=== PATIENT | female | born 1990 | race Two or more races ===

== ENCOUNTER 2022-01-30 08:58 | Outpatient (CLI) | payer OTHER ==
[~2022-01-30 08:58] MED LIST: INTESTINEX1 CAP PO; ZANTAC150 MG PO
== END 2022-01-30 09:48 | disposition home or self-care (01) ==
LOC: PRENATAL 08:58
PROVIDERS: ATTEND Obstetrics & Gynecology Maternal & Fetal Medicine
DX: O36.80X0 Pregnancy with inconclusive fetal viability, not applicable or unspecified (principal); O09.519 Supervision of elderly primigravida, unspecified trimester; Z3A.13 13 weeks gestation of pregnancy

== ENCOUNTER 2022-03-09 12:43 | Outpatient (CLI) | payer OTHER | END 2022-03-09 13:55 | disposition home or self-care (01) | LOC: PRENATAL 12:43 | PROVIDERS: ATTEND Obstetrics & Gynecology Maternal & Fetal Medicine | DX: O35.9XX0 Maternal care for (suspected) fetal abnormality and damage, unspecified, not applicable or unspecified (principal); O35.3XX0 Maternal care for (suspected) damage to fetus from viral disease in mother, not applicable or unspecified; Z3A.20 20 weeks gestation of pregnancy ==

== ENCOUNTER 2022-07-22 07:41 | Inpatient (IN) | payer OTHER ==
[~2022-07-22] VITALS: Ht 162.6 cm; Wt 90.7 kg
[2022-07-22] MEDS ORDERED: GAVISCON EXTRA355 ML PO (11:29)
[2022-07-22] MEDS ORDERED: PRENATAL + DHA1 EAC1 PO (11:29)
[2022-07-22] MEDS ORDERED: TYLENOL325 MG PO (11:30)
== END 2022-07-24 15:33 | disposition home or self-care (01) | DRG 807 ==
LOC: LDR 07:41 → OB/GYN 16:27
PROVIDERS: ADMIT Obstetrics & Gynecology; ATTEND Obstetrics & Gynecology
PROC: 10E0XZZ Delivery of Products of Conception, External Approach (ICD-10-PCS; principal; 2022-07-22)
PROC: 4A1HXCZ Monitoring of Products of Conception, Cardiac Rate, External Approach (ICD-10-PCS; 2022-07-22)
DX: O99.824 Streptococcus B carrier state complicating childbirth (principal); Z37.0 Single live birth; Z3A.39 39 weeks gestation of pregnancy; Z20.822 Contact with and (suspected) exposure to COVID-19

== ENCOUNTER 2023-04-13 12:48 | Emergency (ER) | payer OTHER ==
[~2023-04-13] VITALS: Ht 162.6 cm; Wt 88.5 kg
[~2023-04-13 12:48] MED LIST changes: +GAVISCON EXTRA355 ML PO; +PRENATAL + DHA1 EAC1 PO; +TYLENOL325 MG PO
[2023-04-13 13:56] LABS: HEMATOCRIT 37.9 % (36.0-45.00); HEMOGLOBIN 12.7 g/dL (12.0-15.00); MEAN CELL VOLUME 91.5 fL (80.00-100.00); MEAN CORPUSCULAR HEMOGLOBIN 30.6 pg (27.00-32.0); MEAN CORPUSCULAR HGB CONC 33.5 g/dl (32.0-36.0); PLATELET COUNT 241 K/uL (150-450); RED BLOOD COUNT 4.14 M/uL (4.00-6.00)
[2023-04-13 14:27] LABS: ALBUMIN 3.5 gm/dL (3.4-5.0); ALKALINE PHOSPHATASE 87 U/L (50-136); ALT/SGPT 44 U/L (12-78); AMYLASE 45 U/L (25-115); ANION GAP 7 (10.0-20.0); AST/SGOT 18 U/L (15-37); BILIRUBIN TOTAL 0.65 mg/dL (0.3-1.2); BLOOD UREA NITROGEN 11 mg/dL (7-18); BUN CREA RATIO 14 (7.0-25.0); CALCIUM 8.5 mg/dL (8.5-10.1); CARBON DIOXIDE 27 mEq/L (21-32); CHLORIDE 109 mmol/L (98-107); CREATININE SERUM 0.76 mg/dL (0.55-1.02); GFR 88.76; GLOBULINA 3.9 G/DL (2.4-3.5); GLUCOSE FASTING 103 mg/dL (65-100); LIPASE 15 U/L (13-75); OSMOLALITY SERUM 277 MOSM/KG (275-295); POTASSIUM 3.55 mEq/L (3.5-5.1); SODIUM 139 mmol/L (136-145); TOTAL PROTEIN 7.4 gm/dL (6.4-8.2)
[2023-04-13 14:49] LABS: HCG QUANTITATIVE < 1 mUI/mL (1-3)
== END 2023-04-13 19:26 | disposition home or self-care (01) ==
LOC: ER 12:48
PROVIDERS: General Practice
DX: R19.7 Diarrhea, unspecified (principal)

== ENCOUNTER 2023-06-17 14:56 | Emergency (ER) | payer OTHER ==
[~2023-06-17] VITALS: Ht 162.6 cm; Wt 90.3 kg
== END 2023-06-17 23:00 | disposition home or self-care (01) ==
LOC: ER 14:58
DX: G43.809 Other migraine, not intractable, without status migrainosus (principal); Z88.6 Allergy status to analgesic agent